=== PATIENT | female | born 1970 | race African-American/Black ===

== ENCOUNTER 2019-04-25 21:34 | Inpatient (IN) ==
[2019-04-25 23:47] LABS: Basophils % 0.5 % (0.0-0.8); Eosinophils # 0.2 10*3/uL (0.0-0.87); Hemoglobin 13.2 GM/DL (12.0-16.0); Immature Granulocytes % 0.7 %; Immature Granulocytes Absolute 0.06 #; Lymphocytes # 2.5 10*3/uL (1.4-4.0); Lymphocytes % 28.8 % (21.3-54.2); Mean Corpuscular HGB Conc 32.2 GM/DL (32-36); Mean Corpuscular Volume 91.1 FL (87-102); Mean Platelet Volume 11.4 FL (9.6-12.0); Platelet Count 186 T/CUMM (130-400); Red Cell Distribution Width 13.6 % (9.3-17.3); White Blood Count 8.6 T/CUMM (4-12)
[2019-04-26 00:08] LABS: Alanine Aminotransferase 48 U/L (13-56); Albumin 3.5 G/DL (3.4-5.0); Alkaline Phosphatase 59 U/L (45-117); Aspartate Amino Transferase 28 U/L (0-37); Bilirubin,Total < 0.39 MG/DL (0.2-1.0); Blood Urea Nitrogen 26 MG/DL (7-18); Calcium 8.4 MG/DL (8.5-10.1); Estimated Glom Filtration Rate 74 ML/MIN; Glucose 121 MG/DL (74-106); Osmolality,Calculated 284.4 MOS/KG (273-304); Total Protein 7.7 G/DL (6.4-8.3)
[2019-04-26] MEDS ORDERED: VANCOMYCIN INJ 1,000 MG in SODIUM CHLORIDE 0.9% 250 ML IV STA (01:30)
[2019-04-26] MEDS ORDERED: LEVOFLOXACIN INJ 500 MG in PREMIX 1 EACH IV STA (01:31)
[2019-04-26] MEDS ORDERED: ONDANSETRON 4 MG/2 ML VIAL IV PRN ×2 (01:32→16:47)
[2019-04-26] MEDS ORDERED: CLINDAMYCIN INJ 600 MG in PREMIX 1 EACH IV STA (01:35)
[2019-04-26] MEDS ORDERED: KETOROLAC 30 MG/1 ML VIAL IV ONE (02:25)
[2019-04-26] MEDS ORDERED: KETOROLAC 30 MG/1 ML VIAL ONE (02:28)
[2019-04-26] MEDS: LACTATED RINGERS 1,000 ML IV SCH ×4 (03:55→21:11)
[2019-04-26 05:09] LABS: Basophils % 0.4 % (0.0-0.8); Eosinophils # 0.2 10*3/uL (0.0-0.87); Eosinophils % 2.5 % (0.00-10.9); Hematocrit 41.1 VOL% (35.7-47.0); Hemoglobin 13.2 GM/DL (12.0-16.0); Immature Granulocytes % 0.6 %; Immature Granulocytes Absolute 0.05 #; Lymphocytes # 2.9 10*3/uL (1.4-4.0); Lymphocytes % 36.3 % (21.3-54.2); Mean Corpuscular HGB Conc 32.1 GM/DL (32-36); Mean Corpuscular Volume 90.3 FL (87-102); Mean Platelet Volume 11.4 FL (9.6-12.0); Monocytes % 8.4 % (1.7-12.7); Neutrophils % 51.8 % (38.7-73.9); Platelet Count 180 T/CUMM (130-400); Red Blood Count 4.55 MC/CUMM (3.8-5.5); Red Cell Distribution Width 13.3 % (9.3-17.3); White Blood Count 7.9 T/CUMM (4-12)
[2019-04-26 05:42] LABS: Calcium 8.6 MG/DL (8.5-10.1); Osmolality,Calculated 281.5 MOS/KG (273-304)
[2019-04-26] MEDS ORDERED: MORPHINE 4 MG/1 ML VIAL IV PRN (05:48)
[2019-04-26] MEDS ORDERED: IBUPROFEN 600 MG TABLET PO PRN (05:50)
[2019-04-26] MEDS: CLINDAMYCIN INJ 600 MG in PREMIX 1 EACH IV SCH ×2 (11:16→18:37)
[2019-04-26] MEDS ORDERED: CLINDAMYCIN INJ 50 ML IV ONE (12:55)
[2019-04-26] MEDS ORDERED: MINERAL OIL/PETROLATUM OPH OINT 3.5 GM TUBE RIGHT EYE PRN (13:14)
[2019-04-26] MEDS ORDERED: PHENYTOIN ER 100 MG CAPSULE PO ONE (14:22)
[2019-04-26] MEDS ORDERED: METOPROLOL TARTRATE 50 MG TABLET PO ONE (14:23)
[2019-04-26] MEDS ORDERED: propofoL 200 MG/20 ML VIAL IV ONE (16:29)
[2019-04-26] MEDS ORDERED: fentaNYL 100 MCG/2 ML VIAL ONE (16:30)
[2019-04-26] MEDS ORDERED: LIDOCAINE 2% 5 ML VIAL ONE (16:30)
[2019-04-26] MEDS ORDERED: DESFLURANE 1 UNIT/15 MINUTE INH ONE (16:30)
[2019-04-26] MEDS ORDERED: SUCCINYLCHOLINE 200 MG/10 ML VIAL ONE (16:30)
[2019-04-26] MEDS: HYDROmorphone 2 MG/1 ML VIAL IV PRN ×2 (16:46→16:59)
[2019-04-26] MEDS ORDERED: VANCOMYCIN INJ 2,000 MG in SODIUM CHLORIDE 0.9% 500 ML IV SCH (20:00)
[2019-04-26] MEDS ORDERED: SIMVASTATIN 10 MG TABLET PO SCH (21:00)
[2019-04-26] MEDS: PHENYTOIN ER 100 MG CAPSULE PO SCH (21:38)
[2019-04-26] MEDS: DIVALPROEX ER 500 MG TABLET PO SCH (21:39)
[2019-04-26] MEDS: TOPIRAMATE 25 MG TABLET PO SCH (21:39)
[2019-04-27] MEDS ORDERED: ALBUTEROL 2.5 MG/3 ML NEB RESP TX PRN (01:00)
[2019-04-27] MEDS: CLINDAMYCIN INJ 600 MG in PREMIX 1 EACH IV SCH ×2 (02:47→11:36)
[2019-04-27] MEDS: LACTATED RINGERS 1,000 ML IV SCH ×2 (08:40→11:36)
[2019-04-27] MEDS ORDERED: CITALOPRAM 20 MG TABLET PO SCH (09:00)
[2019-04-27] MEDS ORDERED: LINACLOTIDE 145 MCG CAPSULE PO PRN (09:00)
[2019-04-27] MEDS ORDERED: PANTOPRAZOLE 40 MG TABLET PO SCH (09:00)
[2019-04-27] MEDS ORDERED: DILTIAZEM CD 180 MG CAPSULE PO SCH (09:00)
[2019-04-27] MEDS: SUCRALFATE 1 GM TABLET PO SCH ×2 (09:26→11:36)
[2019-04-27] MEDS: DIVALPROEX ER 500 MG TABLET PO SCH (09:26)
[2019-04-27] MEDS: TOPIRAMATE 25 MG TABLET PO SCH (09:26)
[2019-04-27] MEDS: PHENYTOIN ER 100 MG CAPSULE PO SCH (09:26)
[2019-04-27] MEDS ORDERED: ONDANSETRON 4 MG TABLET PO PRN (13:22)
[2019-04-27] MEDS ORDERED: MINERAL OIL/PETROLATUM OPH OINT 3.5 GM TUBE RIGHT EYE PRN (13:22)
[2019-04-27 16:28] VITALS: BP 99/47
[2019-04-27] MEDS ORDERED: METOPROLOL TARTRATE 50 MG TABLET PO SCH (21:00)
[2019-04-28] MEDS ORDERED: VALSARTAN/HCTZ 160-12.5 MG TABLET PO SCH (09:00)
[2019-04-28] MEDS ORDERED: MELOXICAM 7.5 MG TABLET PO SCH (09:00)
[2019-04-28] MEDS ORDERED: ASPIRIN EC 81 MG TABLET PO SCH (09:00)
== END 2019-04-27 16:00 | disposition home or self-care (01) | DRG 988 ==
LOC: N.ED 21:34 → N.EDINP 04-26 01:31 → N.5E 04-26 02:15
PROVIDERS: ADMIT Otolaryngology; ATTEND Otolaryngology